=== PATIENT | female | born 1950 | race Caucasian/White ===

== ENCOUNTER 2018-09-05 00:38 | Outpatient (CLI) | payer MEDICARE, OTHER, SELFPAY ==
--- NOTE | 2018-09-05 13:30 | DI.MAMMO_ITS ---
SYMPTOM/DIAGNOSIS: SCREENING Z12.31 MAMMOGRAM: Mammograms were interpreted according to the usual protocol including computer analysis with CAD system, tomosynthesis and C view imaging. Comparison with prior examinations. Breast density A. No suspicious masses or microcalcifications are seen. Asymmetric breast tissue in the upper outer quadrant of the left breast appears stable. The skin and axilla are unremarkable.. IMPRESSION: No evidence for malignancy. Yearly mammography is recommended. Category 1 - A. MQSA ASSESSMENT OF FINDINGS: Negative. Category 1. Patient will receive a letter notifying them of these results. BI-RAD category A. The breasts are almost entirely fatty.
== END 2018-09-05 00:58 ==
DX: Z12.31 Encounter for screening mammogram for malignant neoplasm of breast (principal)
CPT/HCPCS: 77063; 77067

== ENCOUNTER 2019-11-21 04:43 | Outpatient (CLI) | payer MEDICARE, OTHER, SELFPAY ==
[2019-11-21 10:53] LABS: ALT 18 U/L (14-59); AST 20 U/L (15-37); Alkaline Phosphatase 73 U/L (46-116); Anion Gap 6.5 mmol/L (3-11); BUN 12 mg/dL (7-18); Bilirubin, Total 0.4 mg/dL (0.2-1.0); CO2 27.5 mmol/L (21.0-32.0); CREATININE 0.78 mg/dL (0.55-1.02); Calcium 9.3 mg/dL (8.5-10.1); Chloride 105 mmol/L (98-107); Glucose 93 mg/dL (74-106); Potassium 4.8 mmol/L (3.5-5.1); Sodium 139 mmol/L (136-145); Total Protein 7.7 g/dL (6.4-8.2)
== END 2019-11-21 05:03 ==
DX: D12.6 Benign neoplasm of colon, unspecified (principal); I73.00 Raynaud's syndrome without gangrene; M85.80 Other specified disorders of bone density and structure, unspecified site; Z68.31 Body mass index [BMI] 31.0-31.9, adult
CPT/HCPCS: 36415; 80053

== ENCOUNTER 2020-11-14 02:29 | Outpatient (CLI) | payer MEDICARE, OTHER, SELFPAY ==
[2020-11-14 13:08] LABS: ALT 19 U/L (14-59); AST 18 U/L (15-37); Albumin 4.1 g/dL (3.4-5.0); Alkaline Phosphatase 83 U/L (46-116); Anion Gap 8.1 mmol/L (3-11); BUN 13 mg/dL (7-18); Bilirubin, Total 0.4 mg/dL (0.2-1.0); CO2 28.9 mmol/L (21.0-32.0); CREATININE 0.8 mg/dL (0.55-1.02); Chloride 105 mmol/L (98-107); Glucose 81 mg/dL (74-106); Potassium 4.6 mmol/L (3.5-5.1); Sodium 142 mmol/L (136-145); Total Protein 7.3 g/dL (6.4-8.2)
== END 2020-11-14 02:30 | disposition home or self-care (01) ==
LOC: LOS 02:29
DX: I73.00 Raynaud's syndrome without gangrene (principal)
CPT/HCPCS: 36415; 80053

== ENCOUNTER → 2021-02-27 09:55 | Outpatient (BNVA) | payer MEDICARE, OTHER, SELFPAY | PROVIDERS: Visit Provider Physical Therapy Assistant | DX: Z12.11 Encounter for screening for malignant neoplasm of colon (principal); Z86.010 Personal history of colon polyps ==

== ENCOUNTER 2021-02-28 04:12 | Outpatient (CLI) | payer MEDICARE, OTHER, SELFPAY ==
--- NOTE | 2021-02-28 07:45 | DI.MAMMO_ITS ---
Exam(s) MAMMO SCREENING EXAM: MAMMO SCREENING CLINICAL HISTORY: screening, Z12.39 TECHNIQUE: Mammograms were interpreted according to the usual protocol including computer analysis w [employer] CAD system, tomosynthesis and C-view imaging. COMPARISON: 2012 through 2018 FINDINGS: The breasts are composed of scattered fibroglandular densities, Breast Density category B. No suspicious masses or suspicious microcalcifications are seen. No skin thickening or abnormal axillary lymph nodes are seen. There has been no significant change from prior exams. IMPRESSION: BI-RADS Category 1, Negative mammogram Yearly screening mammography is recommended. Breast Density - Category B, scattered fibroglandular densities. A negative radiographic report should not delay biopsy if a dominant or clinically suspicious mass is present. Up to ten percent of cancers are not identified on mammography. A negative report may reinforce clinical impression. Adenosis and dense breasts may obscure an underlying neoplasm. False positive reports average 6 to 10%. Patient will receive a letter notifying them of these results.
== END 2021-02-28 04:32 ==
DX: Z12.31 Encounter for screening mammogram for malignant neoplasm of breast (principal)
CPT/HCPCS: 77063; 77067

== ENCOUNTER 2021-03-07 02:26 | Outpatient (CLI) | payer MEDICARE, OTHER, SELFPAY ==
[2021-03-07 12:01] LABS: Source Nasal/Nares
[2021-03-07 16:37] LABS: COVID-19 PCR Negative (Negative)
== END 2021-03-07 02:27 | disposition home or self-care (01) ==
LOC: LBO 02:26
PROVIDERS: Visit Provider Surgery
DX: Z20.822 Contact with and (suspected) exposure to COVID-19 (principal)
CPT/HCPCS: 87635

== ENCOUNTER 2021-03-09 16:45 | Emergency (ER) | payer MEDICARE, OTHER, SELFPAY ==
[2021-03-09 16:50] VITALS: BP 115/76; PULSE 64; RESP 16; TEMP 36; O2SAT 99
--- NOTE | 2021-03-09 17:00 | DI.CT_ITS ---
Exam(s) CT HEAD FACIAL WO EXAM: CT HEAD FACIAL WO CLINICAL HISTORY: Syncope Head injury. TECHNIQUE: Imaging Protocol: Axial computed tomography images with coronal and sagittal reformatted images were created and reviewed COMPARISON: No exams were available for comparison FINDINGS: BRAIN: There are no skull fractures nor fluid in the visualized paranasal sinuses. There is no evidence of intracranial hemorrhage, mass effect, or shift of midline structures. There are no extra-axial fluid collections. The ventricles are not enlarged or shifted and there is no blo od within the ventricular system nor within the basal cisterns. There is symmetrical bifrontal atrophy. MAXILLOFACIAL CT SCAN: There is no evidence of facial fractures nor fluid in the visualized paranasal sinuses. There is no evidence of orbital blowout fracture. IMPRESSION: No acute intracranial findings on this noninfused CT scan of the brain.Symmetrical atrophy noted. No evidence of facial bone fractures nor orbital fractures. RADIATION DOSE DELIVERED: 1,312.41mGy.cm Total DLP DATA REPOSITORY: All CT scans at this facility are submitted to the National Radiology Data Registry (NRDR) Dose Index Registry (DIR) with the [employer] (ACR). RADIATION OPTIMIZATION: All CT scans at this facility use at least one of these dose optimization te chniques: automated exposure control; mA and/or kV adjustment per patient size (includes targeted exa ms where dose is matched to clinical indication); or iterative reconstruction.
--- NOTE | 2021-03-09 17:30 | DI.RAD_ITS ---
Exam(s) XR FOOT RT COMPLETE EXAM: XR FOOT RT COMPLETE CLINICAL HISTORY: Injury, R/O Fracture. TECHNIQUE: 2D digital imaging was performed. COMPARISON: No exams were available for comparison FINDINGS: There is no evidence of fracture or diastasis of the Lisfranc joint. Hardware is noted in the distal fibula and tibia. No osseous lesions nor erosions. IMPRESSION: No acute fracture evident. DATA REPOSITORY: RADIATION DOSE DELIVERED:
--- NOTE | 2021-03-09 17:37 | ED.GENADUL_ITS ---
Discharge Plan Disposition Patient Disposition: HOME Condition: Stable Discharge Details Clinical Impression: Syncope, CHI (closed head injury) Primary Care Provider: Lis Polanco ED Provider: Theresa Bennett Home Meds and New Rx's Prescriptions: No Action calcium carbonate-vitamin D3 [Calcium 500 + D] 1 EACH tablet 1 tab PO DAILY RF: 0 Women's Daily Caplet 1 EACH tablet 1 tab PO DAILY RF: 0 Osteo Bi-Flex Triple Strength 1 EACH tablet 1 tab PO DAILY RF: 0 Discharge Instructions Instructions: Syncope (ED), Head Injury (ED) Additional Instructions: Follow up with primary care provider in 3-5 days. Return to ED sooner if any worsening or concerns. Increase oral fluids. Please return to the ER immediately for any additional syncopal episodes, chest pain, shortness of breath or any concerns. Please do not take any more of the MiraLAX. You may have a colonoscopy tomorrow as scheduled. You let the provider know that you did have the fainting episode. Referrals: Lis Polanco, DRUG ABUSE PROGRAM COORDINATOR [Primary Care Provider] - Discharge Data Discharge Date/Time-TO BE ENTERED AT DEPARTURE: 03/09/21 21:00 Medical Decision Making 70-year-old female presents to the ER via EMS status post syncopal episode and head injury. Patient is in the middle of colonoscopy prep with MiraLAX which is bathroom became dizzy woke up on the bathroom floor. She hit the back of her head on dresser side of her nose and is complaining of right foot pain. She denies any chest pain or shortness of breath. She does endorse generalized weakness no focal neuro deficits noted on my exam. Denies any neck or back pain no hip pain. At this time labs ordered including CBC, CMP, urinalysis Labs are largely unremarkable. No electrolyte abnormalities. CT head maxillofacial shows no acute changes no evidence of intracranial trauma x-ray of foot shows no acute fracture. Patient is ambulatory in department up to the bathroom. Has remain hemodynamically stable throughout stay this time I do suspect that patient can be discharged home. Discussed results with patient and family who verbalized understanding and are in agreement with plan for discharge home. I did discuss discussed the events with general surgery regarding colonoscopy scheduled for tomorrow. We will leave that up to the patient and the surgeon whether they want to go ahead with the test or not. This text was generated using emo2 Incation system, please disregard any oddities of phrase or misspellings. HPI General Mode of arrival: EMS . Date/Time Provider Initiated Documentation: 03/09/21 16:46 . Limitations to Documentation: no limitations . Information obtained by: patient and EMS . HPI Narrative: 70-year-old female presents to the ER via EMS status post syncopal episode and head injury. Patient is in the middle of colonoscopy prep with MiraLAX which is bathroom became dizzy woke up on the bathroom floor. She hit the back of her head on dresser side of her nose and is complaining of right foot pain. She denies any chest pain or shortness of breath. She does endorse generalized weakness no focal neuro deficits noted on my exam. Denies any neck or back pain no hip pain. Related Data Home Medications Medication Instructions Recorded Confirmed Osteo Bi-Flex Triple Strength 1 tab PO DAILY 11/26/15 03/10/21 Women's Daily Caplet 1 tab PO DAILY 11/26/15 03/10/21 calcium carbonate-vitamin D3 1 tab PO DAILY 11/26/15 03/10/21 [Calcium 500 + D] Allergies Allergy/AdvReac Type Severity Reaction Status Date / Time No Known Allergies Allergy Verified 03/10/21 07:27 General Stated Complaint: HeadInjury SERENE: 3 Review of Systems Narrative: Syncope All systems reviewed & are unremarkable except as noted in HPI and below Constitutional Constitutional: Reports weakness Neurologic Neurologic: Reports weakness [facility] Medical History (Updated 03/10/21 @ 07:30 by Pau Hanna) Encounter for annual physical exam Fracture of toe of left foot Nondisplaced obliquely oriented fracture through the 2nd proximal phalanx. A punctate osseous fragments at the dorsal aspect of the distal interphalangeal joint may reflect a small avulsion fracture. There are no radiopaque foreign bodies per [facility] Radiology Report done 12/21/18 Impacted cerumen of both ears Knee pain Osteopenia Raynauds syndrome Syncope Surgical History BROKEN ANKLE (~1995) Colonoscopy - IV Sedation (12/02/16) Colonoscopy - MAC (11/29/17) Ligation of fallopian tube Family History Mother , 76 No problems noted. Father , URO SEPSIS at age 82. Diabetes Sister No problems noted. Brother Hyperlipidemia Maternal Grandfather No problems noted. Paternal Grandfather , Lung cancer/smoker Lung cancer smoker Maternal Grandmother , 70 No problems noted. Paternal Grandmother No problems noted. Daughter Asthma Social History Smoking/Tobacco Use Status: Former Tobacco Use Quit Date: 06/21/72 Second Hand Exposure: No Smoking risk assessment performed?: Yes Alcohol Intake: never Drug use: Never Substance use type: does not use Counseling given: No Counseling provided: none Caregiver/Support person: No Household members: spouse Housing: house Communication Needs: Corrective Lenses Do you need help understanding health information?: Never Pets and animals: No Sexually active: No Do you think of yourself as: straight/heterosexual Current gender identity: female What is your relationship status?: How often do you talk on the phone with friends or family?: three or more times per week How often do you get together with friends or relatives?: once per week How often do you attend samaritan or worship services?: decline to answer Do you belong to any clubs or organized social groups?: no Panel score (0-1 are the most socially isolated patients): 2 What type of physical activity do you participate in: walking, aerobic and other Details: yard work, kayaking, gardening Duration: 45-60 minutes/day Frequency: daily Susanna/Druze: Orthodox Special susanna needs: No Seatbelt use: always Drive intox or ride w/intox moving van driver: No Do you feel safe at home: Yes Do you feel safe in your relationship?: Yes Exam Narrative Exam Narrative: General: Well Developed, Awake and Alert, conversant. Skin: Warm and Dry HEENT: Head: No palpable deformities, Normocephalic small laceration noted to the right occipital scalp. Eyes: Pupils PERRLA, EOM's intact. No periorbital eccymosis or step off Ears: Canal patent. Tympanic membranes are clear . No suero's sign, no hemptympanum. Nose/Face: Small laceration bleeding controlled to the right side of bridge of nose. Facial bones nontender to palpation and stable with manipulation. Mouth/Throat: No intraoral trauma. Teeth and mandible are intact. Neck: No midline tenderness, no step off, no deformity to palpation of C-spine. Trachea midline. Chest: No surface trauma. Nontender without crepitus or deformity. Lungs clear to ausculatation bilaterally. Heart: RRR, no rubs, murmurs or gallop. Abdomen: No abrasions, ecchymosis, or surface trauma. Nondistended. Nontender to palpation no guarding, rebound, or rigidity. Pelvis: Nontender to palpation and stable to compression. Femoral pulses strong and equal Extremities: no surface trauma. Sensation intact. Peripheral pulses intact and equal. Neuro: ANO x4, GCS 15, cranial nerves II through XII intact. Motor and sensory exam nonfocal. Reflexes are symmetric. Course Vital Signs Vital signs: Vital Signs Temperature 36 C L 03/09/21 16:50 Pulse 64 03/09/21 16:50 Respiratory Rate 16 03/09/21 16:50 Blood Pressure 115/76 03/09/21 16:50 Pulse Oximetry 99 03/09/21 16:50 Temperature 36 C L 03/09/21 16:50 Temperature Source Temporal Artery Scan 03/09/21 16:50 Pulse 64 03/09/21 16:50 Respiratory Rate 16 03/09/21 16:50 Respiratory Effort Non-Labored 03/09/21 17:00 Respiratory Depth Normal 03/09/21 17:00 Respiratory Pattern Normal 03/09/21 17:00 Blood Pressure 115/76 03/09/21 16:50 Blood Pressure Position Supine 03/09/21 16:50 Pulse Oximetry 99 03/09/21 16:50 Oxygen Delivery Method Room Air 03/09/21 16:50 Oxygen Flow Rate 0 03/09/21 16:50 Pain Level 3 03/09/21 16:50
[2021-03-09] MEDS: Normal Saline 1,000 ML 1000 ML IV (17:44)
[2021-03-09 17:54] LABS: Abs Immature Grans 0.03 10^3/uL (0.0-0.06); Absolute Basophil Count 0.03 10^3/uL (0.0-0.2); Absolute Eosinophil Count 0.07 10^3/uL (0.0-0.7); Absolute Lymphocyte Count 1.11 10^3/uL (1.2-3.4); Absolute Monocyte Count 0.37 10^3/uL (0.1-0.8); Absolute Neutrophil Count 4.62 10^3/uL (1.2-6.7); Basophils % 0.5; Eosinophils % 1.1; HCT 41.6 % (36.0-46.0); Immature Grans % 0.5; Lymphocytes % 17.8; MCH 31.7 pg (27.0-33.0); MCHC 33.7 % (32.0-36.0); MCV 94.3 fL (80-95); MPV 9.6 fL (8.0-11.0); Monocytes % 5.9; Neutrophils % 74.2; Nucleated RBC 0 %; Platelet Count 216 10^3/uL (130-400); RBC 4.41 10^6/uL (3.93-5.22); RDW 12.9 % (11.7-14.6); RDW-SD 44.7 fL; WBC 6.23 10^3/uL (4.4-10.8)
[2021-03-09 18:19] LABS: ALT 22 U/L (14-59); AST 17 U/L (15-37); Albumin 3.7 g/dL (3.4-5.0); Alkaline Phosphatase 82 U/L (46-116); Anion Gap 6.9 mmol/L (3-11); BUN 12 mg/dL (7-18); Bilirubin, Total 0.3 mg/dL (0.2-1.0); CO2 29.1 mmol/L (21.0-32.0); CREATININE 0.7 mg/dL (0.55-1.02); Calcium 8.9 mg/dL (8.5-10.1); Chloride 104 mmol/L (98-107); Glucose 118 mg/dL (74-106); Potassium 3.6 mmol/L (3.5-5.1); Sodium 140 mmol/L (136-145); Total Protein 7.5 g/dL (6.4-8.2)
--- NOTE | 2021-03-09 18:42 | DI.VRAD_ITS ---
PROCEDURE INFORMATION: Exam: CT Head Without Contrast Exam date and time: 03/09/2021 5:12 PM Age: 70 years old Clinical indication: Injury or trauma; Fall; Blunt trauma (contusions or hematomas); Swelling; Nose; Injury details: Syncope head imjury TECHNIQUE: Imaging protocol: Computed tomography of the head without contrast. COMPARISON: No relevant prior studies available. FINDINGS: Brain: Normal. No hemorrhage. Unremarkable white matter. No mass effect. Involutional changes are most prominent in the frontal regions. Cerebral ventricles: No ventriculomegaly. Pituitary gland and sella: Normal. Paranasal sinuses: Visualized sinuses are unremarkable. No fluid levels. Mastoid air cells: Visualized mastoid air cells are well aerated. Bones/joints: Unremarkable. No acute fracture. Soft tissues: Unremarkable. IMPRESSION: Frontal atrophy otherwise normal CT of the brain with no evidence of intracranial trauma. PROCEDURE INFORMATION: Exam: CT Maxillofacial Without Contrast Exam date and time: 03/09/2021 5:12 PM Age: 70 years old Clinical indication: Injury or trauma; Fall; Blunt trauma (contusions or hematomas); Swelling; Nose; Injury details: Syncope head imjury TECHNIQUE: Imaging protocol: Computed tomography images of the face without contrast. COMPARISON: No relevant prior studies available. FINDINGS: Orbital cavity: Orbits are normal. Globes are unremarkable. Bones/joints: No acute fracture. Paranasal sinuses: Normal. No air-fluid levels. Soft tissues: Unremarkable. IMPRESSION: No sign of bony trauma to the face. Dictated and Authenticated by: Eloy Turcios MD. Ordering:CATHY Cardenas MD
--- NOTE | 2021-03-09 18:43 | DI.VRAD_ITS ---
PROCEDURE INFORMATION: Exam: XR Right Foot Exam date and time: 03/09/2021 5:40 PM Age: 70 years old Clinical indication: Injury or trauma; Fall; Sprain or strain; Foot; Right; Injury details: R/O fracture; Prior surgery TECHNIQUE: Imaging protocol: XR Right foot. Views: 3 or more views. COMPARISON: No relevant prior studies available. FINDINGS: Bones/joints: Orthopedic hardware is noted in the ankle. The foot shows no fracture or dislocation. There are no arthropathic changes. Soft tissues: Normal. IMPRESSION: Previous ankle ORIF. No sign of acute trauma to the foot. Dictated and Authenticated by: Eloy Turcios MD. Ordering:CATHY Cardenas MD
[2021-03-09 20:13] LABS: Bilirubin Negative (Negative); Blood Trace-intact (Negative); Clarity Clear (Clear); Glucose Negative (Negative); Ketones 15 mg/dL (Negative); Leukocyte Esterase Negative (Negative); Nitrite Negative (Negative); Specific Gravity 1.025 (1.005-1.025); Urobilinogen 0.2 EU/dL (Up TO 0.2)
[2021-03-09 20:28] LABS: Bacteria Negative HPF (Negative); C & S Indicated? No; Casts Negative LPF (Negative); Crystals Negative HPF (Negative); Epithelial Cells Rare HPF (Negative); Mucus Negative (Negative); Other Cells Negative (Negative); RBC 0-2 HPF (0-2); WBC 0-2 HPF (0-5)
[2021-03-09 20:37] VITALS: BP 112/67; PULSE 78; RESP 18; TEMP 36.2; O2SAT 98
== END 2021-03-09 21:00 | disposition home or self-care (01) ==
PROVIDERS: Emergency Provider Registered Nurse Emergency
DX: R55 Syncope and collapse (principal); M79.671 Pain in right foot; S09.8XXA Other specified injuries of head, initial encounter; W18.39XA Other fall on same level, initial encounter
CPT/HCPCS: 36415; 80053; 96360; 99284; 70450; 70486; 73630; 81003; 81015; 83735; 85025

== ENCOUNTER 2021-03-10 07:05 | Day surgery (SDC) | payer MEDICARE, OTHER, SELFPAY ==
--- NOTE | 2021-03-10 06:42 | W.COLOREPORT ---
Colonoscopy Report Date of procedure: 03/10/21 Pre-op diagnosis general: Hx of polyp Post-op diagnosis procedure note: same (diverticulosis) Procedure: Colonoscopy Surgeon: Raegan Blair Anesthesia Type: General:No Airway (Maggie Lamb CRNA) Estimated blood loss (mL): 0 Pathology: none sent Complications: None Disposition: same day Indications: The patient is here for Colonoscopy pre-op. Her last screening was in 2017 and was remarkable for sessile serrated adenoma. She has no family history of colon cancer. She has not had any bowel habit changes. -Discussed colonoscopy bowel prep as well as the procedure. Discussed possible complications of the procedure to include bleeding, pain, perforation, missed small lesion/polyp, sore throat, aspiration and adverse reaction to the medications. Questions were answered to patient?s satisfaction. No guarantees were implied or given. Prep: Miralax/Dulcolax Procedure Start Time: 08:38 Procedure End Time: 09:08 Retraction Time: 17 minutes Findings: Lozoya diverticulosis Tatooed area from previous SSA polypectomy noted and there was no recurrence of the polyp Procedure Description: After informed consent was obtained the patient was taken to the procedure room and placed in a left decubitous position. Monitors were applied and a time out was done. The patients name, date of , procedure, allergies to medications and metal in their body was reviewed. The patient was then sedated. Once sedated and comfortable a rectal exam was done. External exam was normal. Internal exam revealed a normal sphincter tone and no palpable masses. The scope was then introduced and retro-flexed. No internal hemorrhoids, polyps or masses were identified on retro-flexion. The scope was then advanced to the cecum with some difficulty. The ileocecal vlave and appendiceal orifice were identified. The prep was marginal. 1 L was used to clear the liquid stool from the mucosa. The scope was then slowly retracted over 17 minutes back into the rectum. There were no polyps. The tattooe was identified, from previous SSA polypectomy. There was no regrowth of the polyp. There was lozoya diverticulosis noted. The scope was removed and the patient was woken up and taken back to Same day surgery in stable condition. The patient tolerated the procedure well and there were no immediate complications. Follow up: The patient should follow up in 3 years unless they develop changes in bowel habits or other new gastrointestinal complaints.
--- NOTE | 2021-03-10 06:43 | W.PM.DSUDISC ---
Discharge Plan Disposition Patient Disposition: HOME Condition: Good Discharge Details Reason For Visit: Colonoscopy Attending Provider: Raegan Blair Primary Care Provider: Lis Polanco Home Meds and New Rx's Prescriptions: Continued calcium carbonate-vitamin D3 [Calcium 500 + D] 1 EACH tablet 1 tab PO DAILY RF: 0 Women's Daily Caplet 1 EACH tablet 1 tab PO DAILY RF: 0 Osteo Bi-Flex Triple Strength 1 EACH tablet 1 tab PO DAILY RF: 0 Discontinued bisacodyl [Dulcolax (bisacodyl)] 5 mg tablet,delayed release (DR/EC) 5 mg PO ONCE Qty: 4 RF: 0 polyethylene glycol 3350 17 gram/dose powder 238 g PO ONCE Qty: 238 RF: 0 Discharge Instructions Instructions: Diverticulosis (DC) Additional Instructions: Findings:Diverticulosis Follow up: 3 years Please call if you develop: fevers >101.5 Nausea or Vomiting Abdominal pain that is not transient Rectal bleeding that is more then a tbsp A hard abdomen and inability to pass gas DAY SURGERY UNIT POST ENDOSCOPY INSTRUCTIONS Instructions for everyone who is given Anesthesia: For your safety, please do the following for the next 24 Hours: a. Do not drive or operate dangerous equipment b. Do not drink alcohol beverages or use any recreational drugs for the first 24 hours or while taking pain medications. The medications in your body may have a reaction that can be dangerous. c. Do not make any important decisions or sign any important papers 1. Generally there are no restrictions on your activity after a day or so has gone by, but you may feel a bit fatigued for a few days. 2. After you arrive home you may have a light meal and return to a normal diet as you can tolerate it without feeling sick to your stomach. 3. After surgery, you may feel pain or discomfort. This should be only transient, but if it persists please contact your doctor. 4. If there are any questions regarding the findings of your procedure, please feel free to contact your doctor. 6. If you are unable to contact your doctor with a problem, contact the hospital at [phone]. 7. Continue all your regular medications unless directed otherwise. I understand the above instructions and have no questions. Signature of Patient or Responsible Adult Escort Date/Time Name of Responsible Adult Escort Signature of Nurse Date/Time Activity:: Activity as Tolerated Diet:: High Fiber diet Discharge Orders Discharge Orders: Discharge Order (Routine); Ordered 03/10/21 Ordered By: Raegan Blair
[2021-03-10 07:21] VITALS: BP 126/72; PULSE 80; RESP 16; TEMP 36.6; O2SAT 98
--- NOTE | 2021-03-10 07:32 | ANES.PREOP_ITS ---
General Info Date of Service Date Performed: 03/10/21 Height: 5 ft 4.5 in Weight: 79.2 kg Body Mass Index (BMI): 29.5 Surgical Procedure: Operation Date: 03/10/21 08:20 Proposed Procedures Side Surgeon p Colonoscopy Raegan Blair MD Meds Allergies and Home Medications Allergies Allergy/AdvReac Type Severity Reaction Status Date / Time No Known Allergies Allergy Verified 03/10/21 07:27 Home Medication Medication Instructions Recorded Osteo Bi-Flex Triple Strength 1 tab PO DAILY 11/26/15 Women's Daily Caplet 1 tab PO DAILY 11/26/15 calcium carbonate-vitamin D3 1 tab PO DAILY 11/26/15 [Calcium 500 + D] bisacodyl 5 mg tablet,delayed 5 mg PO ONCE #4 tab 02/27/21 release polyethylene glycol 3350 17 238 g PO ONCE #238 g 02/27/21 gram/dose oral powder Current Visit Medications: Current Medications Generic Name Dose Route Start Last Admin Trade Name Freq PRN Reason Stop Dose Admin Hyoscyamine Sulfate 0.125 mg 03/10/21 06:44 Hyoscyamine 0.125 Mg Sl/Oral/Chew SL DIRECTED PRN Ringer's Solution 1,000 mls @ 80 mls/hr 03/10/21 06:00 IV 04/06/21 23:59 INFUSION [facility] IV Miscellaneous Supplies 1 each 03/10/21 06:00 Iv Access IV 04/06/21 23:59 DIRECTED [place]ETTE Ondansetron HCl 4 mg 03/10/21 06:44 Ondansetron 4 Mg/2 Ml Vial IVP Q4H PRN PRN Nausea / Vomiting Sodium Chloride 0 ml 03/10/21 06:00 Normal Saline Flush 10 Ml Syr IV 04/06/21 23:59 PRN PRN Sodium Chloride 0 ml 03/10/21 06:00 Normal Saline 10 Ml Vial IJ 04/06/21 23:59 DIRECTED PRN Sterile Water 0 ml 03/10/21 06:00 Water,Injection,Sterile 10 Ml Vial IJ 04/06/21 23:59 DIRECTED PRN PFSH Active Problems Active Problems: Problem Status Onset Code Serrated adenoma of colon 11/26/15 D12.6 Vaginal atrophy 08/18/17 N95.2 Raynaud's syndrome 06/20/12 I73.00 Osteopenia 05/20/07 M85.80 BMI 31.0-31.9,adult 08/15/15 Z68.31 Arthralgia of both hands 08/18/17 M25.541, M25.542 Syncope R55 CHI (closed head injury) S09.90XA Impacted cerumen of both ears H61.23 Encounter for annual physical exam Z00.00 Fracture of toe of left foot S92.912A Medical History Medical History (Updated 03/10/21 @ 07:30 by Pau Hanna) Encounter for annual physical exam Fracture of toe of left foot Nondisplaced obliquely oriented fracture through the 2nd proximal phalanx. A punctate osseous fragments at the dorsal aspect of the distal interphalangeal joint may reflect a small avulsion fracture. There are no radiopaque foreign bodies per [facility] Radiology Report done 12/21/18 Impacted cerumen of both ears Knee pain Osteopenia Raynauds syndrome Syncope Surgical History Surgical History BROKEN ANKLE (~1995) Colonoscopy - IV Sedation (12/02/16) Colonoscopy - MAC (11/29/17) Ligation of fallopian tube Tobacco Smoking/Tobacco Use Status: Former Tobacco Use Passive smoking exposure: No Second hand exposure: No Alcohol Alcohol Intake: never Substance Use Substance use: Never Substance use type: does not use Counseling given: No Counseling provided: none Vital Signs and Lab Results Vital Signs Most Recent Vital Signs in EMR: Most Recent Vital Signs Temp Pulse Resp BP Pulse Ox 36.6 C 80 16 126/72 98 03/10/21 07:21 03/10/21 07:21 03/10/21 07:21 03/10/21 07:21 03/10/21 07:21 Lab Results Blood Type / Crossmatch: No Data to Display Complete Blood Count: White Blood Count 6.23 10^3/uL (4.4-10.8) 03/09/21 17:45 03/09/21 Red Blood Count 4.41 10^6/uL (3.93-5.22) 03/09/21 17:45 03/09/21 Hemoglobin 14.0 g/dL (11.2-15.7) 03/09/21 17:45 03/09/21 Hematocrit 41.6 % (36.0-46.0) 03/09/21 17:45 03/09/21 Platelet Count 216 10^3/uL (130-400) 03/09/21 17:45 03/09/21 Complete Metabolic Panel: Sodium Level 140 mmol/L (136-145) 03/09/21 17:45 03/09/21 Potassium Level 3.6 mmol/L (3.5-5.1) 03/09/21 17:45 03/09/21 Chloride Level 104 mmol/L (98-107) 03/09/21 17:45 03/09/21 Carbon Dioxide Level 29.1 mmol/L (21.0-32.0) 03/09/21 17:45 03/09/21 Blood Urea Nitrogen 12 mg/dL (7-18) 03/09/21 17:45 03/09/21 Creatinine 0.7 mg/dL (0.55-1.02) 03/09/21 17:45 03/09/21 Estimated GFR/1.73 m2 >= 60.00 (mL/min/1.73m2) 03/09/21 17:45 03/09/21 Magnesium Level 2.0 mg/dL (1.8-2.4) 03/09/21 17:45 03/09/21 Calcium Level 8.9 mg/dL (8.5-10.1) 03/09/21 17:45 03/09/21 Albumin 3.7 g/dL (3.4-5.0) 03/09/21 17:45 03/09/21 Glucose Level 118 mg/dL (74-106) H 03/09/21 17:45 03/09/21 Liver Function Panel: Alanine Aminotransferase (ALT/SGPT) 22 U/L (14-59) 03/09/21 17:45 03/09/21 Aspartate Amino Transf (AST/SGOT) 17 U/L (15-37) 03/09/21 17:45 03/09/21 Coagulation Panel: No Data to Display Cardiac Panel: No Data to Display Arterial Blood Gas: No Data to Display Venous Blood Gas: No Data to Display Pancreas Panel: No Data to Display Thyroid Panel: No Data to Display Infectious Disease: Coronavirus (COVID-19)(PCR) Negative (Negative) 03/07/21 09:14 03/07/21 Coronavirus 2019 Source Nasal/Nares 03/07/21 09:14 03/07/21 Blood Cultures: No Data to Display Toxicology Panel: No Data to Display Anesthesia Assessment and Plan Anesthesia History Personal History: No History of Anesthesia Complications Family History: No Family History of Anesthesia Complications Exercise Tolerance Exercise Tolerance: Metabolic Equivalents>4 Pertinent Negatives Pertinent Negatives: No Symptoms of GERD, No Major Cardiovascular Symptoms or Complaints, No Major Pulmonary Symptoms or Complaints, No History of CVA/TIA and Other (Syncopal episode with prep yesterday, fell and hit head, Head CT negative ) Cardiac & Pulmonary Exam Cardiac Exam: Normal S1/S2 Heart Sounds Pulmonary Exam: Clear Bilateral Breath Sounds Airway Exam Known Difficult Airway: No Mallampati Class: 1 Mouth Opening: Normal (> 3cm) Thyromental Distance: Greater than 3 cm Neck Range of Motion: Full ROM Neck Circumference: Normal Teeth Condition: Normal Dentition ASA Classification ASA Score: ASA 2 Emergency Case?: No NPO Status NPO Status: NPO Clears >2 hours, Solids >8 hours Anesthesia Plan Resuscitation Status: Full Code Anesthesia Technique: General Anesthesia Airway Planned: Natural Airway Monitors Used: Standard Monitors
[2021-03-10] MEDS: Lactated Ringers 1,000 ML 80 ML IV (07:39)
[2021-03-10 08:25] VITALS: BMI 29.5
[2021-03-10 09:17] VITALS: BP 111/73; PULSE 82; RESP 16; TEMP 36.1; O2SAT 97
--- NOTE | 2021-03-10 09:25 | W.ANESPOSTOP ---
Postoperative Evaluation Date, Time and Location Date Performed: 03/10/21 Time Performed: 09:17 Patient Location: Day Surgery Unit Vital Signs Most Recent Imported Vital Signs: Most Recent Vital Signs Temp Pulse Resp BP Pulse Ox 36.1 C L 82 16 111/73 97 03/10/21 09:17 03/10/21 09:17 03/10/21 09:17 03/10/21 09:17 03/10/21 09:17 Pain Score Most Recent Pain Score: Most Recent Pain Score Pain Level 0 03/10/21 07:21 Assessment Mental Status: Awake (Alert & Oriented to Patient Baseline) Airway and Respiratory Function: Patent airway with normal (patient baseline) respiratory exam Cardiovascular Function: Hemodynamically Stable Hydration Status: Adequately Hydrated Nausea & Vomiting: No Nausea or Vomiting Pain: Pt. Denies Any Pain Peripheral Nerve Block: Patient did not receive a nerve block
[2021-03-10 09:54] VITALS: BP 111/78; PULSE 68; RESP 16; TEMP 36.3; O2SAT 98
== END 2021-03-10 10:20 | disposition home or self-care (01) ==
LOC: SUR 07:06
PROVIDERS: Visit Provider Surgery
PROC: 0DJD8ZZ Inspection of Lower Intestinal Tract, Via Natural or Artificial Opening Endoscopic (ICD-10-PCS; CPT 45378; principal; 2021-03-10 08:15)
DX: Z12.11 Encounter for screening for malignant neoplasm of colon (principal); Z86.010 Personal history of colon polyps; K57.30 Diverticulosis of large intestine without perforation or abscess without bleeding
CPT/HCPCS: G0105; J2001

== ENCOUNTER → 2022-04-06 01:25 | Outpatient (CLI) | payer MEDICARE, OTHER, SELFPAY ==
--- NOTE | 2022-04-06 12:25 | DI.MAMMO_ITS ---
Exam(s) MAMMO SCREENING EXAM: MAMMO SCREENING CLINICAL HISTORY: screening Z12.39 TECHNIQUE: Bilateral full field digital CC and MLO mammographic images were obtained with 3D tomosyn thesis and utilizing computer aided detection (CAD). COMPARISON: Available for comparison. FINDINGS: Masses/Architectural Distortion: None seen. Microcalcifications: No suspicious pleomorphic-type are seen. Skin Thickening/Nipple Retraction: None. IMPRESSION: 1. No significant interval change with no specific features of malignancy noted. 2. Unless there is more urgent need, screening mammography is recommended, as per [place] [employer] guidelines. BI-RADS Category 1 - Negative Breast Density - Category B - Scattered areas of fibroglandular density Breast density category C or D implies that the patient has dense breast tissue. Dense breast tissue is very common and is not abnormal but dense breast tissue can make it harder to find cancer on a ma mmogram. Also, dense breast tissue may increase their breast cancer risk. This information about the result of the mammogram report was provided to the patient to raise their awareness. Use this report when you speak with the patient about their risks for breast cancer, which includes their family hist ory. At that time, you may recommend for more screening tests (Ultrasound or MRI) as they might be us eful based on their risk. A negative radiographic report should not delay biopsy if a dominant or clinically suspicious mass is present. Up to ten percent of cancers are not identified on mammography. A negative report may reinforce clinical impression. Adenosis and dense breasts may obscure an underlying neoplasm. False positive reports average 6 to 10%. Patient will receive a letter notifying them of these results.
== END ==
PROVIDERS: Visit Provider Family Medicine
DX: Z12.31 Encounter for screening mammogram for malignant neoplasm of breast (principal)
CPT/HCPCS: 77063; 77067

== ENCOUNTER 2022-10-22 01:49 | Outpatient (CLI) | payer MEDICARE, OTHER, SELFPAY ==
[2022-10-22 14:10] LABS: ALT 31 U/L (14-59); AST 17 U/L (15-37); Albumin 3.7 g/dL (3.4-5.0); Alkaline Phosphatase 107 U/L (46-116); Anion Gap 7.8 mmol/L (3-11); BUN 12 mg/dL (7-18); Bilirubin, Total 0.2 mg/dL (0.2-1.0); CO2 29.2 mmol/L (21.0-32.0); CREATININE 0.8 mg/dL (0.55-1.02); Calcium 8.9 mg/dL (8.5-10.1); Chloride 104 mmol/L (98-107); Estimated GFR 79.22 (mL/min/1.73m2); Glucose 98 mg/dL (74-106); Sodium 141 mmol/L (136-145); Total Protein 7.6 g/dL (6.4-8.2)
== END 2022-10-22 01:50 | disposition home or self-care (01) ==
PROVIDERS: PCP Nurse Practitioner Family
DX: L98.8 Other specified disorders of the skin and subcutaneous tissue (principal); Z79.899 Other long term (current) drug therapy; Z00.00 Encounter for general adult medical examination without abnormal findings
CPT/HCPCS: 36415; 80053

== ENCOUNTER 2022-12-31 01:43 | Outpatient (CLI) | payer MEDICARE, OTHER, SELFPAY ==
--- NOTE | 2022-12-31 07:30 | DI.DEXA_ITS ---
Exam(s) XR DEXA BONE DENSITY W/WO YAQUELIN EXAM: XR DEXA BONE DENSITY W/WO YAQUELIN CLINICAL HISTORY: SCREENING FOR OSTEOPOROSIS IN POSTMENOPAUSAL WOMAN,Z78.0 TECHNIQUE: Routine DEXA evaluation of the lumbar spine, hip, or forearm. COMPARISON: No exams were available for comparison FINDINGS: Performed on a Hologic unit. Lateral image: No compression fracture evident. Lumbar Spine total T-score: -1.9 Hip total T-score:-1.1 Independent reading at the level of the femoral neck yields T-score of -1.2 Forearm total T-score: -2.1 IMPRESSION: Bone mineral density measures in the osteopenia range. Fracture risk is moderate. Note: Any spine fracture indicates 5x risk for subsequent spine fracture and 2x risk for subsequent h ip fracture. World Health Organization criteria for BMD interpretation classify patients: Normal...... T- Score at or above -1.0 Osteopenic... T- Score between -1.0 and -2.5 Osteoporosis... T-Score at or below -2.5
== END 2022-12-31 02:03 ==
LOC: DI 01:43
PROVIDERS: PCP Nurse Practitioner Family; Visit Provider Nurse Practitioner Family
DX: M85.88 Other specified disorders of bone density and structure, other site (principal); Z78.0 Asymptomatic menopausal state
CPT/HCPCS: 77080

== ENCOUNTER → 2023-04-07 03:20 | Outpatient (CLI) | payer MEDICARE, OTHER, SELFPAY ==
--- NOTE | 2023-04-07 07:15 | DI.MAMMO_ITS ---
Exam(s) MAMMO SCREENING EXAM: MAMMO SCREENING CLINICAL HISTORY: screening,z12.39 TECHNIQUE: Bilateral full field digital CC and MLO mammographic images were obtained with 3D tomosyn thesis and utilizing computer aided detection (CAD). COMPARISON: Available for comparison. FINDINGS: Masses/Architectural Distortion: None seen. Microcalcifications: No suspicious pleomorphic-type are seen. Skin Thickening/Nipple Retraction: None. IMPRESSION: 1. No significant interval change with no specific features of malignancy noted. 2. Unless there is more urgent need, screening mammography is recommended, as per [place] [employer] guidelines. BI-RADS Category 1 - Negative Breast Density - Category B - Scattered areas of fibroglandular density Breast density category C or D implies that the patient has dense breast tissue. Dense breast tissue is very common and is not abnormal but dense breast tissue can make it harder to find cancer on a ma mmogram. Also, dense breast tissue may increase their breast cancer risk. This information about the result of the mammogram report was provided to the patient to raise their awareness. Use this report when you speak with the patient about their risks for breast cancer, which includes their family hist ory. At that time, you may recommend for more screening tests (Ultrasound or MRI) as they might be us eful based on their risk. A negative radiographic report should not delay biopsy if a dominant or clinically suspicious mass is present. Up to ten percent of cancers are not identified on mammography. A negative report may reinforce clinical impression. Adenosis and dense breasts may obscure an underlying neoplasm. False positive reports average 6 to 10%. Patient will receive a letter notifying them of these results.
== END ==
PROVIDERS: PCP Nurse Practitioner Family; Visit Provider Nurse Practitioner Family
DX: Z12.31 Encounter for screening mammogram for malignant neoplasm of breast (principal); R92.323 Mammographic fibroglandular density, bilateral breasts
CPT/HCPCS: 77063; 77067

== ENCOUNTER 2023-11-05 01:44 | Outpatient (CLI) | payer MEDICARE, OTHER, SELFPAY ==
[2023-11-05 12:49] LABS: Calculated LDL 118 mg/dL (<100); Cholesterol 216 mg/dL (<200); HDL Cholesterol 88 mg/dL (40-60); Triglyceride 53 mg/dL (<150)
[2023-11-05 19:44] LABS: Hepatitis C Ab w Rflx HCV PCR Negative (Negative)
[2023-11-05 19:47] LABS: HIV-1/2 Ag & Ab Screen Negative (Negative)
== END 2023-11-05 01:45 | disposition home or self-care (01) ==
LOC: LOS 01:44
PROVIDERS: PCP Nurse Practitioner Family; Visit Provider Nurse Practitioner Family
DX: Z11.59 Encounter for screening for other viral diseases (principal); Z13.220 Encounter for screening for lipoid disorders; Z11.4 Encounter for screening for human immunodeficiency virus [HIV]
CPT/HCPCS: 80061; 86803; 87389

== ENCOUNTER 2024-11-06 12:10 | Outpatient (CLI) | payer MEDICARE, OTHER, SELFPAY ==
--- NOTE | 2024-11-06 12:00 | RT.EKG_ITS ---
APPROVED REPORT Exam: Resting ECG Reason for Exam: annual Patient Location: O HR:72 bpm ECG Measurements Heart Rate 72 AXIS FL 154 P -12 QRSd 91 QRS 28 QT 367 T 27 QTc 402 Conclusion Sinus rhythm...normal P axis, V-rate 50- 99 Normal Electrocardiogram
== END 2024-11-06 12:11 | disposition home or self-care (01) ==
LOC: DI.CM 12:10
PROVIDERS: PCP Nurse Practitioner Family; Visit Provider Nurse Practitioner Family
DX: R00.2 Palpitations (principal)
CPT/HCPCS: 93010

== ENCOUNTER 2024-11-06 17:21 | Outpatient (REF) | payer MEDICARE, OTHER, SELFPAY ==
[2024-11-06 21:38] LABS: Anion Gap 10.8 mmol/L (3-11); BUN 16 mg/dL (7-18); CO2 26.2 mmol/L (21.0-32.0); CREATININE 0.7 mg/dL (0.55-1.02); Calcium 9.6 mg/dL (8.5-10.1); Chloride 104 mmol/L (98-107); Estimated GFR 91.83 (mL/min/1.73m2); Glucose 89 mg/dL (74-106); Magnesium 2.1 mg/dL (1.8-2.4); Potassium 4.4 mmol/L (3.5-5.1); Sodium 141 mmol/L (136-145)
== END 2024-11-06 17:22 | disposition home or self-care (01) ==
LOC: LBN 17:21
PROVIDERS: PCP Nurse Practitioner Family; Visit Provider Nurse Practitioner Family
DX: R00.2 Palpitations (principal)
CPT/HCPCS: 80048; 83735

== ENCOUNTER 2024-11-09 03:37 | Outpatient (CLI) | payer MEDICARE, OTHER, SELFPAY ==
[2024-11-09 12:29] LABS: HCT 46.8 % (36.0-46.0); MCH 30.7 pg (27.0-33.0); MCHC 32.1 % (32.0-36.0); MCV 96 fL (80-95); MPV 10.7 fL (8.0-11.0); Platelet Count 279 10^3/uL (130-400); RBC 4.88 10^6/uL (3.93-5.22); RDW 13.2 % (11.7-14.6); RDW-SD 46.8 fL; WBC 4.97 10^3/uL (4.4-10.8)
[2024-11-10 09:50] LABS: HBs Antibody, Quant <3.1 mIU/mL (See Note); Hep B Surface Ab Negative (See Note); Hepatitis B Core Antibody Negative (Negative); Hepatitis B Surface Antigen Negative (Negative)
== END 2024-11-09 03:38 | disposition home or self-care (01) ==
LOC: LOS 03:37
PROVIDERS: PCP Nurse Practitioner Family; Visit Provider Nurse Practitioner Family
DX: Z11.59 Encounter for screening for other viral diseases (principal); R00.2 Palpitations
CPT/HCPCS: 36415; 85027; 86704; 86706; 87340; 93227; 93225

== ENCOUNTER 2024-11-09 10:53 | Outpatient (RCR) | payer MEDICARE, OTHER, SELFPAY ==
--- NOTE | 2024-11-16 15:17 | W.HOLTRPT ---
Date of service: 11/16/24 Time of Service: 15:17 Holter Monitor Report Referring Provider:: Julian Vann Indications:: Palpitations Holter Monitor Note: This is a 48-hour Holter monitor Predominant rhythm is sinus with an average heart rate of 79. Minimum was 50, maximum 131 There were frequent ventricular ectopic beats, comprising 15% of total There were rare atrial premature beats. There were several self limited brief atrial runs There was no atrial fibrillation, no high-grade AV block, no pauses greater than 3 seconds Reported symptoms had no correlation to any dysrhythmia. The ventricular ectopy was entirely asymptomatic
== END 2024-11-18 23:59 | disposition home or self-care (01) ==
LOC: CARDOPNVT 10:53
PROVIDERS: PCP Nurse Practitioner Family; Visit Provider Internal Medicine Cardiovascular Disease
DX: R00.2 Palpitations (principal)
CPT/HCPCS: 93227; 93225; 93226

== ENCOUNTER 2024-12-07 00:34 | Outpatient (CLI) | payer MEDICARE, OTHER, SELFPAY ==
--- NOTE | 2024-12-07 08:45 | DI.MAMMO_ITS ---
Exam(s) MAMMO SCREENING EXAM: MAMMO SCREENING CLINICAL HISTORY: SCREENING, Z12.39 TECHNIQUE: Bilateral full field digital CC and MLO mammographic images were obtained with 3D tomosynthesis and utilizing computer aided detection (CAD). COMPARISON: Comparison is made with prior examinations. FINDINGS: Masses/Architectural Distortion: No suspicious masses or areas of architectural distortion are present. There is increased prominence of 8 mm area of nodularity in the outer retroareolar region of the right breast on the craniocaudad view. Microcalcifications: No suspicious pleomorphic-type are seen. Skin Thickening/Nipple Retraction: None. IMPRESSION: 1. Increased prominence of an area of nodularity in the outer retroareolar region of the right breast on the craniocaudad view. 2. Spot compression views requested for further evaluation. Ultrasound may be indicated at that time. BI-RADS Category 0 - Incomplete: Need additional imaging evaluation Breast Density - Category A - The breast are almost entirely fatty. Breast density Category C or D implies that the patient has dense breast tissue. Dense breast tissue can make it harder to find cancer on a mammogram. Dense breast tissue is also associated with an increased risk of breast cancer. This information about the result of the mammogram report was provided to the patient to raise their awareness. Use this report when you speak with the patient about their risks for breast cancer, which includes their family history. At that time, you may recommend additional screening tests (Ultrasound or MRI) as these tests may add significant information. A negative radiographic report should not delay biopsy if a dominant or clinically suspicious mass is present. Up to ten percent of cancers are not identified on mammography. A negative report may reinforce clinical impression. Adenosis and dense breasts may obscure an underlying neoplasm. False positive reports average 6 to 10%. Patient will receive a letter notifying them of these results.
== END 2024-12-07 00:54 ==
LOC: DI 00:34
PROVIDERS: PCP Nurse Practitioner Family; Visit Provider Nurse Practitioner Family
DX: Z12.31 Encounter for screening mammogram for malignant neoplasm of breast (principal); R92.313 Mammographic fatty tissue density, bilateral breasts
CPT/HCPCS: 77063; 77067

== ENCOUNTER 2024-12-08 11:08 | Outpatient (CLI) | payer MEDICARE, OTHER, SELFPAY ==
--- NOTE | 2024-12-08 11:15 | RT.EKG_ITS ---
APPROVED REPORT Exam: Resting ECG Reason for Exam: palpitations Patient Location: O HR:76 bpm ECG Measurements Heart Rate 76 AXIS NE 160 P -17 QRSd 90 QRS 30 QT 361 T 30 QTc 406 Conclusion Sinus rhythm...normal P axis, V-rate 50- 99 Ventricular premature complex...V complex w/ short R-R interval Otherwise normal ECG
== END 2024-12-08 11:09 | disposition home or self-care (01) ==
LOC: DI.CARD 11:15
PROVIDERS: PCP Nurse Practitioner Family; Referring Provider Nurse Practitioner Family; Visit Provider Internal Medicine Cardiovascular Disease
DX: R00.2 Palpitations (principal)
CPT/HCPCS: 93010

== ENCOUNTER → 2024-12-08 11:08 | Outpatient (BNVA) | payer MEDICARE, OTHER, SELFPAY | PROVIDERS: PCP Nurse Practitioner Family; Referring Provider Nurse Practitioner Family; Visit Provider Internal Medicine Cardiovascular Disease | DX: I49.3 Ventricular premature depolarization (principal); R00.2 Palpitations | CPT/HCPCS: 99203; 93005 ==

== ENCOUNTER 2024-12-11 02:19 | Outpatient (CLI) | payer MEDICARE, OTHER, SELFPAY ==
--- NOTE | 2024-12-11 | DI.MAMMO_ITS ---
Exam(s) MAMMO SCREEN CALL BACK UNI EXAM: MAMMO SCREEN CALL BACK UNI CLINICAL HISTORY: F/U MAMMO, R92.8,INCREASED PROMINENCE NODULARITY RT BREAST TECHNIQUE: Spot compression views with tomographic imaging were performed. COMPARISON: 2016 through 07 December 2024 FINDINGS: No suspicious masses or suspicious microcalcifications are seen. No persistent abnormality is seen on the additional views performed. The findings are consistent with overlying fibroglandular tissue. There has been no significant change from prior exams. IMPRESSION: BI-RADS Category 1, Negative Yearly screening mammography is recommended. Breast Density - Category A - The breast are almost entirely fatty. Breast density Category C or D implies that the patient has dense breast tissue. Dense breast tissue can make it harder to find cancer on a mammogram. Dense breast tissue is also associated with an increased risk of breast cancer. This information about the result of the mammogram report was provided to the patient to raise their awareness. Use this report when you speak with the patient about their risks for breast cancer, which includes their family history. At that time, you may recommend additional screening tests (Ultrasound or MRI) as these tests may add significant information. A negative radiographic report should not delay biopsy if a dominant or clinically suspicious mass is present. Up to ten percent of cancers are not identified on mammography. A negative report may reinforce clinical impression. Adenosis and dense breasts may obscure an underlying neoplasm. False positive reports average 6 to 10%. Patient will receive a letter notifying them of these results.
== END 2024-12-11 02:39 ==
LOC: DI 02:19
PROVIDERS: PCP Nurse Practitioner Family; Visit Provider Nurse Practitioner Family
DX: Z12.31 Encounter for screening mammogram for malignant neoplasm of breast (principal); R92.8 Other abnormal and inconclusive findings on diagnostic imaging of breast; R92.313 Mammographic fatty tissue density, bilateral breasts
CPT/HCPCS: 77063; 77067

== ENCOUNTER 2025-01-01 02:23 | Outpatient (CLI) | payer MEDICARE, OTHER, SELFPAY ==
--- NOTE | 2025-01-01 09:30 | DI.US_ITS ---
APPROVED REPORT EXAM: Comprehensive 2D, Doppler, and color-flow Echocardiogram Patient Location: Out-Patient [facility] Operator: Jarred Hayes RDCS (AE) Indications: PVCs, check LV function Other Information Study Quality: Adequate Conclusion Normal left ventricular wall thickness and chamber size. Ejection fraction is 55 to 60%. Wall motion is normal Normal right ventricular size and function Both atria are normal in size There are no structural valvular abnormalities Mild mitral regurgitation Wall motion Left Ventricle The left ventricle is normal size. The left ventricular systolic function is normal. The left ventricular ejection fraction is within the normal range. There is normal left ventricular wall thickness. There is normal LV segmental wall motion. There is no ventricular septal defect visualized. LVEF is 55-60%. Right Ventricle The right ventricle is normal size. The right ventricular systolic function is normal. Atria The left atrium size is normal. The right atrium size is normal. The interatrial septum is intact with no evidence for an atrial septal defect. Aortic Valve The aortic valve is normal in structure. Aortic valve is trileaflet. There is no aortic valvular stenosis. No aortic regurgitation is present. Mitral Valve The mitral valve is normal in structure. No evidence of mitral valve stenosis. Mild mitral regurgitation. Tricuspid Valve The tricuspid valve is normal in structure. There is no tricuspid valve stenosis. Trace tricuspid regurgitation. Pulmonic Valve The pulmonary valve is normal in structure. There is no pulmonic valvular stenosis. Mild to moderate pulmonic regurgitation. Great Vessels The aortic root is normal in size. The ascending aorta is normal in size. Aortic arch is normal in caliber. IVC is normal in size and collapses >50% with inspiration. Pericardium There is no pericardial effusion. 2D Dimensions IVSD d PLAX 0.96 cm F: 0.6-1.0 Ao Root d 3.07 cm F: 2.7 - 3.3 LVPW d PLAX 1.02 cm F: 0.6 - 1.0 Ao Asc Diam d 2.97 cm F: 2.3 - 3.1 LVID d PLAX 5.18 cm F: 3.8 - 5.2 LVDs 3.70 cm F: 2.2 - 3.5 LV EF Teichholz 54.9 % FS 28.70 % LV EDV (Teich) 128.6 mL LV ESV (Teich) 58.0 mL Stroke Vol Index (Teich) 35.66 M-Mode TAPSE 2.86 cm (M/F) >1.7 Auto EF LV EDV A4C 94.1 mL LV EDV A2C 108.3 mL LV EDV BP 102.4 mL LV ESV A4C 42.8 mL LV ESV A2C 45.9 mL LV ESV BP 46.4 mL LVEF(%) A4C 54.5 % LVEF(%) A2C 57.6 % LVEF(%) BP 54.7 % LV SV A4C 51.3 ml LV SV A2C 62.4 ml LV SV BP 56.0 ml LV CO A4C 3.2 L/min LV CO A2C 3.8 L/min LV CO BP 3.5 L/min HR A4C 62.28 BPM HR A2C 60.51 BPM LV EDV Index (BP) LA Volume LA Length A4C 5.0 cm LA Length A2C 3.9 cm LA Area A4C s 10.35 cm2 LA Area A2C s 11.50 cm2 LA Vol A4C A-L 18.16 mL LA Vol A2C A-L 28.55 mL LA Vol Biplane A-L 25.7 mL LA Vol/BSA A4C A-L LA Vol/BSA A2C A-L LA Vol/BSA BP A-L 13.0 mL/m2 LA Vol A4C MOD 17.1 mL LA Vol A2C MOD 27.1 mL LA Vol BP MOD 24.1 mL RA Volume RA Area A4C 10.3 cm2 RA ESV A4C (A-L) 20.1mL RA Vol/BSA A4C A-L RA Length A4C 4.5 cm RA ESV A4C (MOD) 19.1mL LV Diastology MV E' medial 0.085 (>0.07 m/s) MV E Vmax 0.75 (0.4-1.3 m/s) MV E/E' MED 8.90 (<14) MV A Vmax 0.65 (0.4-1.3 m/s) MV E' lateral 0.087 (>0.1 m/s) E/A Ratio 1.2 MV E/E' LAT 8.62 (<14) MV E' Average 0.086 m/s MV E/E'(average) 8.76 Aortic Valve AoV Vmax 1.37 m/s LVOT Vmax 1.01 m/s AoV Peak Grad 7.6 mmHg LVOT Peak Grad 4.1 mmHg AoV Area (Vmax) 2.40 cm2 LVOT VTI 0.213 m AoV VTI 0.322 m LVOT Mean Grad 1.9 mmHg AoV Mean Fawad. 0.96 m/s LVOT SV 69.73 mL AoV Mean Grad 4.3 mmHg LVOT Diam s 2.00 cm AoV Area (VTI) 2.17 cm2 AV Regurg Peak Gr. 7.56 mmHg Velocity Ratio 0.74 Mitral Valve MV DT 195 (160-240 msec) Pulmonary Valve PV Vmax 1.19 (0.5-1.5 m/s) RVOT Vmax 0.74 m/s PV Peak Grad 5.6 mmHg RVOT Peak Gr. 2.2 mmHg PV Mean Fawad 0.76 m/s RVOT VTI 0.171 m PV Mean Grad 2.7 mmHg RVOT Mean Gr. 1.3 mmHg
== END 2025-01-01 02:43 ==
LOC: DI 02:23
PROVIDERS: PCP Nurse Practitioner Family; Visit Provider Internal Medicine Cardiovascular Disease
DX: I49.3 Ventricular premature depolarization (principal)
CPT/HCPCS: 93306

== ENCOUNTER → 2025-01-19 10:52 | Outpatient (BNVA) | payer MEDICARE, OTHER, SELFPAY | PROVIDERS: PCP Nurse Practitioner Family; Referring Provider Nurse Practitioner Family; Visit Provider Internal Medicine Cardiovascular Disease | DX: I49.3 Ventricular premature depolarization (principal) | CPT/HCPCS: 99213 ==